=== PATIENT | female | born 1985 | race Caucasian/White ===

== ENCOUNTER 2017-01-07 08:00 | Inpatient (IN) ==
[2017-01-07] MEDS ORDERED: Famotidine 20 MG/2 ML VIAL IVP PRN (08:12)
[2017-01-07] MEDS ORDERED: Naloxone 0.4 MG/ML INJ IVP PRN (08:12)
[2017-01-07] MEDS ORDERED: Ondansetron 4 MG/2 ML VIAL IVP PRN (08:12)
[2017-01-07] MEDS ORDERED: miSOPROStol 25 MCG TABLET PO PRN (08:14)
[2017-01-07] MEDS ORDERED: Penicillin G Potassium 5,000,000 UNIT in D5% in Water (Mini-Bag+) 100 ML IVPB ONE (08:30)
[2017-01-07 08:34] LABS: Basophils % 0.4 %; Eosinophils # 0.1 K/mcL (0.0-0.6); Eosinophils % 1.6 %; Hematocrit 37.4 % (35.3-44.9); Hemoglobin 12.4 g/dL (11.5-15.4); Immature Granulocytes % 0.5 % (0-4); Lymphocytes # 1.7 K/mcL (0.6-4.6); Lymphocytes % 20.5 %; Mean Corpuscular HGB Conc 33.2 g/dL (31.6-35.5); Mean Corpuscular Hemoglobin 27.4 pg (28.0-33.3); Mean Corpuscular Volume 82.6 fL (83.0-100.0); Mean Platelet Volume 11.1 fL (9.4-12.4); Monocytes # 0.5 K/mcL (0.0-1.3); Monocytes % 6.2 %; Neutrophils # 5.8 K/mcL (1.6-8.9); Platelet Count 163 K/mcL (140-400); Red Blood Count 4.53 M/mcL (3.82-4.97); Red Cell Distribution Width 15.6 % (11.5-14.5); Segmented Neutrophils % 70.8 %
--- NOTE | 2017-01-07 08:49 | OB/GYN History & Physical ---
Date of Encounter: 01/07/17 Time of Encounter: 08:45 Assessment and Plan (1) 40 weeks gestation of Current visit: Yes Status: Acute po cytotec nubain prn epidural if/when desired anticipate vaginal delivery (2) GBS (group B Streptococcus carrier), +RV culture, currently Current visit: Yes Status: Acute penicillin G (3) Rubella non-immune status, antepartum Current visit: Yes Status: Acute MMR vaccine to be offered prior to discharge (4) Type O blood, Rh negative Current visit: Yes Status: Acute rhogam after delivery History of Present Illness Chief complaint: induction HPI: Ms. Anderson is a 31 year old female at 40.5 weeks gestation here for induction of labor. Her was complicated by subchorionic hemorrhage in her second trimester and O- blood. Denies vaginal bleeding, loss of fluid, blurred vision, dizziness, headache. Reports good movement. LAbs: GBS +, Rubella equivocal Blood type O- Medications and Allergies Vit/Iron Fumarate/FA [ Tablet] 1 each PO DAILY 01/07/17 [ History] No Known Allergies Allergy (Verified 01/07/17 08:42) Results Result Diagrams: 01/07/17 08:18 Abnormal lab results MCV 82.6 fL (83.0-100.0) L 01/07/17 08:18 MCH 27.4 pg (28.0-33.3) L 01/07/17 08:18 RDW 15.6 % (11.5-14.5) H 01/07/17 08:18 All other labs normal. - VTE Reasons for not Prescribing Prophylaxis: Treatment not Indicated - Low risk for VTE
[2017-01-07] MEDS: Ringers Solution, Lactated 1,000 ML IVC SCH ×2 (09:01→17:35)
--- NOTE | 2017-01-07 11:07 | OB Labor Progress Note ---
Date of Encounter: 01/07/17 Time of Encounter: 11:05 Labor Progress Note - Subjective Subjective: Patient doing well, no complaints. - Cervix Cervix: 4, 60, -2 - Heart Tones Heart Tones: category 1 tracing - Interventions Interventions: artificial rupture of membranes IUP placed - Plan Plan: continue with induction of labor monitor intensity of contractions with IUP, start pitocin prn
--- NOTE | 2017-01-07 11:34 | Anesthesia Evaluation PreOp ---
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) Other Medical History: Denies Any Significant HX, Other (obesity) Anesthesia History: No Prior Anesthetic Complications, Past Anesthesia (none, no family history of anesthetic complications) : Yes Alcohol Use: none Drug use: none Medications and Allergies Vit/Iron Fumarate/FA [ Tablet] 1 each PO DAILY 01/07/17 [ History] 3 Allergy/AdvReac Type Severity Reaction Status Date / Time No Known Allergies Allergy Verified 01/07/17 08:42 - Meds/Allergy Pre-op Review Medications Reviewed: Yes Allergies Reviewed: Yes Beta Blockers on Current Med List: No Anesthesia Results - Labs 01/07/17 08:18 Anesthesia Exam BP 145/70 P69 R 16 T 96.6 Height: 5'3" Weight: 140.1kg NPO (# of Hours): 3 Pain Scale: 2 Pain Scale Used: Numeric (1 - 10) - HEENT Pupil (Motor): Pupils equal Mallampati: II Teeth: Normal Oral Opening: Greater than 3 - 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
[2017-01-07] MEDS: *HR* Nalbuphine 20 MG/ML AMPUL IVP PRN ×2 (14:35→19:05)
--- NOTE | 2017-01-07 17:00 | OB Labor Progress Note ---
Date of Encounter: 01/07/17 Time of Encounter: 16:57 Labor Progress Note - Subjective Subjective: Patient breathing through contractions on the birthing ball. - Vital Signs Vital Signs: VSS - Cervix Cervix: 4-5/80/-2 - Heart Tones Heart Tones: 150's with moderate variability with 15 x 15 accels and no decels - [place]: Contractions every 4-5 minutes lasting 60 seconds in length - Interventions Interventions: IUPC placed without difficulty. Patient and fetus tolerated well. - Plan Plan: Continue routine labor management GBS positive - PCN prophylaxis Patient may have nubain and/or epidural as requested for pain control Consider IV pitcoin for labor augmentation Anticipate vaginal delivery; EFW >96% patient elects IOL. POC per consult with Dr Roque.
[2017-01-07] MEDS: Penicillin G Potassium 2,500,000 UNIT in D5% in Water 100 ML IVPB SCH ×2 (17:36→21:10)
--- NOTE | 2017-01-07 19:12 | OB Labor Progress Note ---
Date of Encounter: 01/07/17 Time of Encounter: 19:09 Labor Progress Note - Subjective Subjective: Pt getting more uncomfortable with uc's, no vb or lof. - Cervix Cervix: 5-6/95/-2 - Heart Tones Heart Tones: RNST - [place]: uc's q 2 min 60-80 mmhg - Plan Plan: Expect .
[2017-01-08] MEDS ORDERED: Metoclopramide 10 MG/2 ML VIAL IVP ONE (01:06)
--- NOTE | 2017-01-08 01:16 | OB Labor Progress Note ---
Date of Encounter: 01/08/17 Time of Encounter: 01:13 Labor Progress Note - Subjective Subjective: Pt uncomfortable with uc's q 2 min. - Cervix Cervix: 8/95/-2 - Heart Tones Heart Tones: RNST - [place]: uc's q 2min - Plan Plan: Pt with very frewq and strong uc'ss 80 mmhg q 2-3 min with minimal cervical change and almost no progression in descent in 6 hours. Baby known to be >96%. D/w pt options and she agrees that given lack of progress the CPD is likely and will proceed with primary . Pt aware of operative risks and consent is obtained.
[2017-01-08] MEDS: Ringers Solution, Lactated 1,000 ML IVC SCH (01:17)
--- NOTE | 2017-01-08 01:24 | OB/GYN Procedure Note ---
Section - Date of procedure: 01/08/17 Preop diagnosis: arrest of descent, arrest of dilation Post-op diagnosis: same Procedure: section, primary low transverse, bilateral tubal ligation Surgeon: Del Romero Estimated blood loss (cc): 500 Anesthesia Type: Spinal section complications: none Disposition: L&D Recovery Room Specimens: Placenta - (s) Infant A Infant Delivery Date: 01/08/17 Presentation: vertex Route of delivery: other (primary ) Gender: Male Viability: Viable Pounds: 9 Ounces: 2 at 1 minute: 9 at 5 minutes: 10 Specimens collected: cord blood Cord: 3 umbilical vessels - Narrative Narrative: She is 31-year-old 2 now para 2 female presented to labor and delivery for induction of labor 40 and 6weeks gestation. She underwent Cervidil and amniotomy and despite adequate contractions she made minimal cervical change on reaching 8 cm dilated 90% effacement and -2 station change in more than a centimeter after 7 hours of adequate labor. We did noted baby is greater than 96% on size discussed with patient options decision was made to proceed with primary section for failure to progress probable cephalopelvic disproportion patient was aware of operative risks and signed appropriate consent. Description procedure: Patient was taken operating room where spinal anesthesia was administered. She is prepped draped in usual sterile fashion bladder was drained of clear urine. Scalp was used to make an incision down to the rectus fascia. Fascia was incised the midline fascial incision was extended bilaterally. Plan was developed and rectus muscle superiorly distally rectus muscle divided and peritoneum was entered bluntly bladder blade was placed and bladder flap was developed and lower uterine segment. Scalpel was used to make a low transverse uterine incision this was extended bluntly bilaterally. Membranes had been ruptured clear fluid. Infant was delivered from vertex presentation significant Was noted. There was loose cord around neck 1 which was reduced. Infant was handed nurse personnel were determined to be 9 at 1 minute and 10 at 5 minutes and weight was 9 lbs. 2 oz. There were no evidence of anomalies. Placenta was delivered manually and uterine cavity was massaged for residual tissue. Uterus was closed 0 Vicryl running lock stitch. Several [id number] stitches were used to obtain hemostasis. Irrigation was performed hemostasis was assured. Left fallopian tube was identified pulled up with Fei and double ligated with oh plain catgut suture. The 3 cm segment of tube was removed hemostasis was assured. Right fallopian tube was identified followed out to its fimbriated end pulled up to the midline and double ligated with oh plain catgut suture 3 similar segment was removed hemostasis was ensured. Fascia was then closed with oh loop PDS in a running manner. Deep subcutaneous tissue was closed oh plain catgut suture in interrupted manner. Skin edges were approximated mehreen. All sponge and instruments counts are correct patient taken recovery in good condition.
[2017-01-08] MEDS ORDERED: *HR* FentaNYL (PF) 100 MCG/2 ML VIAL ONE (01:48)
[2017-01-08] MEDS ORDERED: *HR* Morphine Sulfate/PF 5 MG/10 ML AMPUL ONE (01:48)
[2017-01-08] MEDS ORDERED: *HR* Oxytocin 10 UNIT/ML VIAL IM ONE (01:54)
[2017-01-08] MEDS ORDERED: EPHEDrine 50 MG/ML VIAL ONE (01:57)
[2017-01-08] MEDS ORDERED: *HR* OxyCODONE/APAP 5/325 TABLET PO PRN (02:24)
[2017-01-08] MEDS ORDERED: *HR* Morphine 2 MG/ML SYRINGE IVP PRN (02:24)
[2017-01-08] MEDS ORDERED: Ondansetron 4 MG/2 ML VIAL IVP PRN ×2 (02:24→05:15)
[2017-01-08] MEDS ORDERED: Naloxone 0.4 MG/ML INJ IVP PRN ×2 (02:24→05:15)
[2017-01-08] MEDS ORDERED: Ibuprofen 400 MG TABLET PO PRN (02:24)
[2017-01-08] MEDS ORDERED: *HR* HYDROmorphone (PF) 1 MG/ML SYRINGE IVP PRN (02:24)
[2017-01-08] MEDS ORDERED: Acetaminophen IV 1,000 MG/100 ML INFUS..BTL IVPB ONE (02:31)
--- NOTE | 2017-01-08 02:37 | Anesthesia Procedures ---
Date of Encounter: 01/08/17 Time of Encounter: 01:50 Procedures: Anesthesia - Epidural/Spinal Patient ID/Chart reviewed: Yes Patient examined: Yes OB Eval: Gestational age: 40.5 OB Eval: : 2 OB Eval: Hx Para: 1 OB Eval: Dilated at (cm): 8 OB Eval: Contractions: Non-stressed pattern Consent Obtained: Yes Supplemental Oxygen: None/Room Air Site Prep: Aseptic Technique, Sterile prep and drape, Povidone-Iodine 1% Patient position: upright Local Anesthetic: Lidocaine 1% Amount of Local Anesthetic used: 3 Interspace Used: L4-L5 Loss of Resistance (PHYLICIA): No Blood: No CSF: Yes Paresthesia: No Spinal Needle Gauge: 25 Spinal Dose: Bupivicaine 0.75% 1.6ml fent 25 morph 200 Procedure: Intrathecal dose administered 2nd pass without any immediate noted complications. VSS throughout. Pt supine for sterile prep/drape Vitals + FHT's: See anesthesia record.
[2017-01-08] MEDS ORDERED: Ringers Solution, Lactated 1,000 ML IVC SCH (05:15)
[2017-01-08] MEDS ORDERED: Sennosides 8.6 MG TABLET PO PRN (05:15)
[2017-01-08] MEDS ORDERED: Simethicone 80 MG TAB.CHEW PO PRN (05:15)
[2017-01-08] MEDS ORDERED: Metoclopramide 10 MG/2 ML VIAL IVP PRN (05:15)
[2017-01-08] MEDS ORDERED: Rho Immune Globulin 1,500 UNIT SYRINGE IM ONE (05:15)
[2017-01-08] MEDS ORDERED: Oxytocin 20 units/ LR 1000 mL 20 UNIT/1,000 ML BAG IVC SCH (05:15)
[2017-01-08] MEDS: *HR* OxyCODONE/APAP 5/325 TABLET PO PRN (12:29)
[2017-01-08] MEDS: Ibuprofen 600 MG TABLET PO PRN (15:45)
[2017-01-09 05:57] LABS: Basophils % 0.2 %; Eosinophils # 0.1 K/mcL (0.0-0.6); Eosinophils % 0.6 %; Hematocrit 34.5 % (35.3-44.9); Hemoglobin 11.1 g/dL (11.5-15.4); Immature Granulocytes % 0.4 % (0-4); Lymphocytes # 1.7 K/mcL (0.6-4.6); Lymphocytes % 15.9 %; Mean Corpuscular HGB Conc 32.2 g/dL (31.6-35.5); Mean Corpuscular Hemoglobin 27.1 pg (28.0-33.3); Mean Corpuscular Volume 84.4 fL (83.0-100.0); Mean Platelet Volume 10.9 fL (9.4-12.4); Monocytes # 0.9 K/mcL (0.0-1.3); Monocytes % 8.1 %; Platelet Count 157 K/mcL (140-400); Red Blood Count 4.09 M/mcL (3.82-4.97); Red Cell Distribution Width 15.9 % (11.5-14.5); Segmented Neutrophils % 74.8 %
[2017-01-09] MEDS: *HR* OxyCODONE/APAP 5/325 TABLET PO PRN ×2 (08:26→21:51)
[2017-01-09] MEDS: Prenatal Vit/FA 1 EACH TABLET PO SCH (08:26)
--- NOTE | 2017-01-09 09:57 | OB/GYN Progress Note ---
Date of Encounter: 01/09/17 Time of Encounter: 09:56 - Assessment and Plan (1) Status post section Current Visit: Yes Status: Acute s/p C/S POD# 1, patient doing well, cont current inpt care Subjective - Subjective Patient reports: appetite normal, voiding normally, pain well controlled, ambulating normally : doing well Objective - Vital Signs Latest vital signs: Vital Signs Temp Pulse Resp BP Pulse Ox 01/09/17 07:45 98.1 F 82 18 105/69 01/09/17 00:00 98.6 F 91 18 101/67 98 01/08/17 19:45 97.4 F L 90 16 107/69 97 01/08/17 16:00 98.6 F 84 18 111/76 01/08/17 11:52 98.7 F 97 16 106/60 Intake and Output 01/08/17 01/09/17 01/09/17 23:59 07:59 15:59 Intake Total 400 / 400 240 / 240 Output Total 100 / 100 700 / 700 Balance -100 / -100 -300 / -300 240 / 240 Intake: Oral 400 / 400 240 / 240 Output: Urine 100 / 100 700 / 700 Other: Meal Breakfast Percent of Meal Consumed 100% # Voids 1 - Exam Lungs: bilateral: normal Chest: Normal S1, Normal S2 Extremities: Present: normal Abdomen: Present: normal appearance, soft Incision: Present: normal, intact Uterus: Present: firm - Labs Labs: Laboratory Results - last 24 hr 01/09/17 05:49 WBC 10.6 RBC 4.09 Hgb 11.1 L Hct 34.5 L MCV 84.4 MCH 27.1 L MCHC 32.2 RDW 15.9 H Plt Count 157 MPV 10.9 Immature Gran % 0.4 Seg Neutrophils % 74.8 Lymphocytes % 15.9 Monocytes % 8.1 Eosinophils % 0.6 Basophils % 0.2 Neutrophils # 8.0 Lymphocytes # 1.7 Monocytes # 0.9 Eosinophils # 0.1 Basophils # 0.0
[2017-01-09] MEDS: Ibuprofen 600 MG TABLET PO PRN (11:47)
[2017-01-10] MEDS: Prenatal Vit/FA 1 EACH TABLET PO SCH (08:17)
[2017-01-10] MEDS: Ibuprofen 600 MG TABLET PO PRN (08:17)
[2017-01-10 08:58] VITALS: BP 116/72
[2017-01-10] MEDS ORDERED: cephALEXin 500 MG CAPSULE PO SCH (09:45)
[2017-01-10] MEDS ORDERED: Azithromycin 250 MG TABLET PO SCH (09:45)
--- NOTE | 2017-01-10 09:48 | Discharge Summary ---
Date of Encounter: 01/10/17 Time of Encounter: 09:44 - Discharge Diagnosis (1) 40 weeks gestation of Priority: Secondary Status: Acute Comments: care with Dr. Romero (2) Status post section Priority: Primary Status: Acute Comments: Patient meeting milestones. She had a for failed induction of labor. She is morbidly obese and will be sent home on Keflex and azithromycin (3) Morbid obesity Priority: Secondary Status: Acute Comments: The patient is at high risk for /postop infection. She has been sent home on Zithromax and Keflex per infectious treatment protocol - Discharge Medications Prescriptions: OxyCODONE/APAP 5/325 [Percocet 5/325 MG] 1 each PO Q4HR PRN #40 tab PRN Reason: Moderate pain 4-6 Ibuprofen [Motrin] 600 mg PO Q6HR PRN #30 tab PRN Reason: Cramping Azithromycin [Zithromax] 500 mg PO Q24H #7 tab cephALEXin [Keflex] 500 mg PO BID #14 Home Medications: Vit/Iron Fumarate/FA [ Tablet] 1 each PO DAILY 01/07/17 [ History] Azithromycin [Zithromax] 500 mg PO Q24H #7 tab 01/10/17 [Rx] Ibuprofen [Motrin] 600 mg PO Q6HR PRN #30 tab 01/10/17 [Rx] OxyCODONE/APAP 5/325 [Percocet 5/325 MG] 1 each PO Q4HR PRN #40 tab 01/10/17 [Rx ] cephALEXin [Keflex] 500 mg PO BID #14 01/10/17 [Rx] Allergies/Adverse Reactions: 3 Allergy/AdvReac Type Severity Reaction Status Date / Time No Known Allergies Allergy Verified 01/07/17 08:42 Data Procedures and tests throughout hospitalization: Laboratory Tests 01/07/17 01/08/17 01/09/17 08:18 02:50 05:49 WBC 8.1 10.6 RBC 4.53 4.09 Hgb 12.4 11.1 L Hct 37.4 34.5 L MCV 82.6 L 84.4 MCH 27.4 L 27.1 L MCHC 33.2 32.2 RDW 15.6 H 15.9 H Plt Count 163 157 MPV 11.1 10.9 Immature Gran % 0.5 0.4 Seg Neutrophils % 70.8 74.8 Lymphocytes % 20.5 15.9 Monocytes % 6.2 8.1 Eosinophils % 1.6 0.6 Basophils % 0.4 0.2 Neutrophils # 5.8 8.0 Lymphocytes # 1.7 1.7 Monocytes # 0.5 0.9 Eosinophils # 0.1 0.1 Basophils # 0.0 0.0 Baby's Blood Type B RH NEGATIVE Mother's Blood Type O RH NEGATIVE Rhogam Indicated NO Date of admission: 01/07/17 08:04 Primary care physician: PCP NONE Discharging clinician: Britney Arevalo Anticipated date of discharge: 01/10/17 - Patient Status Disposition: Home, Self-Care Condition: Good Functional capacity at discharge: independent ambulation Overall status at discharge: patient is progressing back to baseline - Discharge Instructions Follow Up With: NONE,PCP [Primary Care Provider] - Del Romero MD [Partnered Physician] - - Diet and Activity Activity: increase activity as tolerated, resume usual activities as tolerated Diet: regular diet Hospital Course Procedures: Primary for failure to progress Reason for admission: induction of labor, IUP at term Delivery: section Episiotomy: none Laceration: none Other procedures: tubal ligation complications: other (Cellulitis) Discharge diagnosis: IUP at term delivered, failed induction Maynard baby: male Hospital course: Patient is ambulating and voiding without difficulty. She has had return of bowel function. She is tolerating oral pain medication. She is requesting discharge. She is remaining afebrile with stable vital signs throughout her stay. Time Attestation: Total time spent providing and/or coordinating discharge services: Time Spent: Less than 30 minutes Specific discharge activities: Pelvic rest, no lifting or driving. Cellulitis has been marked with a permanent skin marker. The patient has been given instructions if redness is extending past the current moses she is to call the office to be evaluated. She is also call if she has a fever greater than 100.5 - VTE Reasons for not Prescribing Prophylaxis: Treatment not Indicated - Low risk for VTE Documentation of Mechanical Device: Intermittent pneumatic compression device Exam - Constitutional Vitals: Temp Pulse Resp BP Pulse Ox 98.2 F 82 16 116/72 100 01/10/17 08:30 01/10/17 08:30 01/10/17 08:30 01/10/17 08:30 01/09/17 20:15 General appearance IM: A&O X 3, morbidly obese, pleasant, no acute distress - Respiratory Respiratory exam: Present: CTAB. Absent: respiratory distress - Cardiovascular Cardiovascular exam IM: Present: RRR. Absent: irregular rhythm - GI/Abdominal GI/Abdominal exam IM: normal bowel sounds, soft, no peritoneal signs Incision: erythematous (Superiorly above the umbilicus), dry, intact, warm - Rectal Rectal exam: deferred - Uterine Tone: Firm Uterus Position: At Umbilicus, Midline - Extremities Exam Extremities exam IM: Present: normal inspection, warm. Absent: calf tenderness , pedal edema - Neurological Exam Neurological exam: alert, no focal deficits
== END 2017-01-10 11:48 | disposition home or self-care (01) | DRG 540 ==
LOC: 1NENULAB 08:04 → 1NENUOBS 01-08 05:14
PROVIDERS: ADMIT Obstetrics & Gynecology; ATTEND Obstetrics & Gynecology